=== PATIENT | male | born 1960 | race Caucasian/White ===

== ENCOUNTER 2018-02-16 22:54 | Inpatient (IN) ==
--- NOTE | 2018-02-16 23:48 | Emergency Department Note ---
Disposition Clinical Impression: Hyperglycemia, Ketosis Disposition: Admitted As Inpatient Condition: Fair Referrals: Neeta Fernando CNP [Primary Care Provider] - Forms: ED Satisfaction Letter, Work/School Release Time of Disposition: 01:43 General Adult HPI - General Chief complaint: ED General Medical Stated complaint: Abnormal high glucose Time Seen by Provider: 02/16/18 23:13 Source: patient Mode of arrival: ambulatory Limitations: no limitations Nursing Notes Reviewed: Yes Vital Signs Reviewed: Yes - History of Present Illness HPI Narrative: 57-year-old male with history of hypertension presents for evaluation of elevated blood sugar. Patient had outpatient labs was noted to be hyperglycemic with a sugar in the 500s. Patient denies history of diabetes. Patient denies any recent medications or steroids. Patient states that over the past 2 weeks she has had increased urination and increased thirst. Patient' s also had some blurry vision and dry mouth. Patient denies any abdominal pain or nausea vomiting. Patient denies any chest pain but states he feels short of breath. Patient denies any history of kidney disease. Denies any fevers Pain Scale: 0 - Related Data Allergies Allergy/AdvReac Type Severity Reaction Status Date / Time No Known Allergies Allergy Verified 02/16/18 22:56 All systems ED: reviewed and negative except as stated. Constitutional: Denies: fever Cardiovascular: Denies: chest pain Respiratory: Reports: dyspnea. Denies: cough Gastrointestinal: Denies: abdominal pain, nausea, vomiting Past Medical History - Past Medical History Source: patient Medical history: Reports: arthritis, hyperlipidemia, hypertension Psychiatric history: Reports: no psych history - Social History Smoking Status: Former smoker Smokeless Tobacco Status: No Alcohol use: Reports: rarely Drug use: Reports: none Physical Exam - General Limitations: no limitations General appearance: alert, in no apparent distress - Head Head exam: atraumatic, normocephalic, normal inspection - Eye Eye exam: Present: normal appearance, PERRL, EOMI - ENT ENT exam: normal exam, normal oropharynx - Neck Neck exam: Present: normal inspection - Chest Chest inspection: Present: normal inspection, symmetric chest wall rise - Respiratory Respiratory exam: Present: normal lung sounds bilaterally. Absent: respiratory distress - Cardiovascular Cardiovascular exam: Present: regular rate, normal rhythm. Absent: systolic murmur - Abdominal Exam Abdominal exam: Present: soft, Non-Tender - Extremities Exam Extremities exam: Present: normal inspection. Absent: pedal edema - Expanded Lower Extremity Exam Neurovascular/Tendon exam: Present: normal capillary refill - Neurological Exam Neurological exam: Present: alert, oriented X3, CN II-XII intact - Skin Skin exam: Present: warm, dry, intact, normal color Course - Reevaluation(s) Reevaluation #1: Patient seen and examined. Patient's resting catheter. No needs at this time. Time: 01:30 Reevaluation #2: Patient's blood sugars in the 300s. Time: 02:29 Vital Signs Temperature 98 F 02/16/18 22:56 Pulse Rate 91 02/16/18 22:56 Respiratory Rate 18 02/16/18 22:56 Blood Pressure 114/81 02/16/18 22:56 O2 Sat by Pulse Oximetry 96 02/16/18 22:56 Temperature 98 F 02/16/18 22:56 Pulse Rate 71 02/17/18 04:04 Respiratory Rate 20 02/17/18 04:04 Blood Pressure 124/69 02/17/18 04:04 O2 Sat by Pulse Oximetry 97 02/17/18 04:04 Oxygen Delivery Oxygen Delivery Room Air Medical Decision Making - [facility] Narrative Medical decision making narrative: 57-year-old male persists for evaluation of elevated blood sugars. Patient has a history of formal diagnosis of diabetes. Patient had outpatient labs and had a glucose in the 500s. Patient's having 2 weeks of polyuria polydipsia. Patient's also had some vision changes with blurriness. Patient had basic labs which showed elevated glucose. Patient was given 2 L of fluid as well as insulin. Patient was not acidotic. Patient was having ketosis. Patient does not have a way to check her manage his blood sugar at home. Patient's newly diagnosed diabetic. Patient would benefit from diabetic education and counseling adequate hyperglycemic control prior to discharge. Patient denies any fevers no chest pain source of breath. No abdominal pain. No potential trigger. - Lab Data Lab results reviewed: Yes I reviewed the patient's lab results. Result diagrams: 02/16/18 23:31 02/17/18 03:03 Lab Results 02/16/18 02/16/18 02/16/18 Range/Units 23:31 23:31 23:31 WBC 9.9 (4.3-11.1) K/mcL RBC 4.97 (4.19-5.50) M/mcL Hgb 13.8 (12.9-16.9) g/dL Hct 39.7 (37.5-50.1) % MCV 79.9 L (83.0-100.0) fL MCH 27.8 L (28.0-33.3) pg MCHC 34.8 (31.6-35.5) g/dL RDW 14.8 H (11.5-14.5) % Plt Count 93 L (140-400) K/mcL MPV TNP Immature Gran % 0.3 (0-4) % Seg Neutrophils % 49.5 % Lymphocytes % 40.3 % Monocytes % 6.7 % Eosinophils % 2.5 % Basophils % 0.7 % Neutrophils # 4.9 (1.6-8.9) K/mcL Lymphocytes # 4.0 (0.6-4.6) K/mcL Monocytes # 0.7 (0.0-1.3) K/mcL Eosinophils # 0.3 (0.0-0.6) K/mcL Basophils # 0.1 (0.0-0.2) K/mcL Nucleated RBCs/100 WBC 0.3 H (0) /100 WBC Immature Plt Fraction 23.0 H (1.1-6.1) % VBG pH (7.32-7.42) pH Units VBG pCO2 (41-51) mmHg VBG pO2 (25-50) mmHg VBG HCO3 (21-27) mEq/L Sodium 126 L (136-145) mEq/L Potassium 4.4 (3.5-5.1) mEq/L Chloride 94 L (98-107) mEq/L Carbon Dioxide 20 L (23-29) mEq/L BUN 19 (6-20) mg/dL Creatinine 1.05 (0.70-1.30) mg/dL Est GFR ( Amer) > 60 (> 60) Est GFR (Non-Af Amer) > 60 (> 60) BUN/Creatinine Ratio 18 (6-26) Glucose 708 H* (70-105) mg/dL POC Glucose (70-99) mg/dL Calculated Osmolality 298 (280-300) Calcium 9.9 (8.6-10.3) mg/dL Total Bilirubin 0.9 (0.3-1.0) mg/dL AST 28 (13-39) Units/L ALT 29 (7-52) Units/L Alkaline Phosphatase 80 (34-104) Units/L Troponin I < 0.03 (< 0.04) ng/mL Serum Total Protein 8.1 (6.4-8.9) g/dL Albumin 4.1 (3.5-5.7) g/dL Globulin 4.0 H (2.4-3.5) g/dL Albumin/Globulin Ratio 1.0 L (1.1-2.2) Triglycerides (< 150) mg/dL Cholesterol (< 200) mg/dL LDL Cholesterol, Calc (0-99) mg/dL VLDL Cholesterol, Calc (< 31) mg/dL HDL Cholesterol (40-59) mg/dL Cholesterol/HDL Ratio (0-4.9) Beta-Hydroxybutyric Acd 0.62 H (0.02-0.27) mmol/L TSH (0.340-5.600) mcIU/mL Urine Color (Yellow) Urine Clarity (Clear) Urine pH (5.0-8.0) pH Units Ur Specific [place] (1.010-1.025) Urine Protein (Neg-Trace) mg/dL Urine Glucose (UA) (Normal) mg/dL Urine Ketones (Negative) mg/dL Urine Blood (Negative) Urine Nitrite (Negative) Urine Bilirubin (Negative) Urine Urobilinogen (Normal) mg/dL Ur Leukocyte Esterase (Negative) Ur Culture Indicated? (NO) 02/16/18 02/17/18 02/17/18 Range/Units 23:46 00:22 02:20 WBC (4.3-11.1) K/mcL RBC (4.19-5.50) M/mcL Hgb (12.9-16.9) g/dL Hct (37.5-50.1) % MCV (83.0-100.0) fL MCH (28.0-33.3) pg MCHC (31.6-35.5) g/dL RDW (11.5-14.5) % Plt Count (140-400) K/mcL MPV Immature Gran % (0-4) % Seg Neutrophils % % Lymphocytes % % Monocytes % % Eosinophils % % Basophils % % Neutrophils # (1.6-8.9) K/mcL Lymphocytes # (0.6-4.6) K/mcL Monocytes # (0.0-1.3) K/mcL Eosinophils # (0.0-0.6) K/mcL Basophils # (0.0-0.2) K/mcL Nucleated RBCs/100 WBC (0) /100 WBC Immature Plt Fraction (1.1-6.1) % VBG pH 7.41 (7.32-7.42) pH Units VBG pCO2 38 L (41-51) mmHg VBG pO2 98 H (25-50) mmHg VBG HCO3 24 (21-27) mEq/L Sodium (136-145) mEq/L Potassium (3.5-5.1) mEq/L Chloride (98-107) mEq/L Carbon Dioxide (23-29) mEq/L BUN (6-20) mg/dL Creatinine (0.70-1.30) mg/dL Est GFR ( Amer) (> 60) Est GFR (Non-Af Amer) (> 60) BUN/Creatinine Ratio (6-26) Glucose (70-105) mg/dL POC Glucose 348 H (70-99) mg/dL Calculated Osmolality (280-300) Calcium (8.6-10.3) mg/dL Total Bilirubin (0.3-1.0) mg/dL AST (13-39) Units/L ALT (7-52) Units/L Alkaline Phosphatase (34-104) Units/L Troponin I (< 0.04) ng/mL Serum Total Protein (6.4-8.9) g/dL Albumin (3.5-5.7) g/dL Globulin (2.4-3.5) g/dL Albumin/Globulin Ratio (1.1-2.2) Triglycerides (< 150) mg/dL Cholesterol (< 200) mg/dL LDL Cholesterol, Calc (0-99) mg/dL VLDL Cholesterol, Calc (< 31) mg/dL HDL Cholesterol (40-59) mg/dL Cholesterol/HDL Ratio (0-4.9) Beta-Hydroxybutyric Acd (0.02-0.27) mmol/L TSH (0.340-5.600) mcIU/mL Urine Color Yellow (Yellow) Urine Clarity Clear (Clear) Urine pH 6.0 (5.0-8.0) pH Units Ur Specific [place] > 1.030 H (1.010-1.025) Urine Protein Negative (Neg-Trace) mg/dL Urine Glucose (UA) >=1000 H (Normal) mg/dL Urine Ketones Negative (Negative) mg/dL Urine Blood Negative (Negative) Urine Nitrite Negative (Negative) Urine Bilirubin Negative (Negative) Urine Urobilinogen Normal (Normal) mg/dL Ur Leukocyte Esterase Negative (Negative) Ur Culture Indicated? NO (NO) 02/17/18 02/17/18 Range/Units 03:03 03:03 WBC (4.3-11.1) K/mcL RBC (4.19-5.50) M/mcL Hgb (12.9-16.9) g/dL Hct (37.5-50.1) % MCV (83.0-100.0) fL MCH (28.0-33.3) pg MCHC (31.6-35.5) g/dL RDW (11.5-14.5) % Plt Count (140-400) K/mcL MPV Immature Gran % (0-4) % Seg Neutrophils % % Lymphocytes % % Monocytes % % Eosinophils % % Basophils % % Neutrophils # (1.6-8.9) K/mcL Lymphocytes # (0.6-4.6) K/mcL Monocytes # (0.0-1.3) K/mcL Eosinophils # (0.0-0.6) K/mcL Basophils # (0.0-0.2) K/mcL Nucleated RBCs/100 WBC (0) /100 WBC Immature Plt Fraction (1.1-6.1) % VBG pH (7.32-7.42) pH Units VBG pCO2 (41-51) mmHg VBG pO2 (25-50) mmHg VBG HCO3 (21-27) mEq/L Sodium 134 L (136-145) mEq/L Potassium 4.0 (3.5-5.1) mEq/L Chloride 104 (98-107) mEq/L Carbon Dioxide 23 (23-29) mEq/L BUN 16 (6-20) mg/dL Creatinine 0.91 (0.70-1.30) mg/dL Est GFR ( Amer) > 60 (> 60) Est GFR (Non-Af Amer) > 60 (> 60) BUN/Creatinine Ratio 18 (6-26) Glucose 382 H (70-105) mg/dL POC Glucose (70-99) mg/dL Calculated Osmolality 295 (280-300) Calcium 8.6 (8.6-10.3) mg/dL Total Bilirubin (0.3-1.0) mg/dL AST (13-39) Units/L ALT (7-52) Units/L Alkaline Phosphatase (34-104) Units/L Troponin I (< 0.04) ng/mL Serum Total Protein (6.4-8.9) g/dL Albumin (3.5-5.7) g/dL Globulin (2.4-3.5) g/dL Albumin/Globulin Ratio (1.1-2.2) Triglycerides 209 H (< 150) mg/dL Cholesterol 111 (< 200) mg/dL LDL Cholesterol, Calc 42 (0-99) mg/dL VLDL Cholesterol, Calc 42 H (< 31) mg/dL HDL Cholesterol 27 L (40-59) mg/dL Cholesterol/HDL Ratio 4.1 (0-4.9) Beta-Hydroxybutyric Acd (0.02-0.27) mmol/L TSH 1.964 (0.340-5.600) mcIU/mL Urine Color (Yellow) Urine Clarity (Clear) Urine pH (5.0-8.0) pH Units Ur Specific [place] (1.010-1.025) Urine Protein (Neg-Trace) mg/dL Urine Glucose (UA) (Normal) mg/dL Urine Ketones (Negative) mg/dL Urine Blood (Negative) Urine Nitrite (Negative) Urine Bilirubin (Negative) Urine Urobilinogen (Normal) mg/dL Ur Leukocyte Esterase (Negative) Ur Culture Indicated? (NO) - Radiology Data Radiology results reviewed: Yes I reviewed the patient's radiology results. S.B.AShirley - S.B.A.[place] Situation: Demographics Background: Presenting Complaint Assessment: Vital Signs, Course and respsone to treatment, Patient/Family Expectation Recommendation: Barrier(s) to disposition, Recommendation based on pending studies, treatments, or consults S.B.A.RMiguel Ángel Report Given to: Dr. Nicolás Spivey Repor Time: 01:43 Attestation Statement - Attestation Attestation: I examined this patient and my medical decision-making was reviewed with the Resident Physician. I agree with the documented findings, disposition and treatment plan as described except to the extent set forth below. Findings consistent with hyperglycemia. New-onset diabetic. We will admit for insulin regimen and aggressive hydration.
[2018-02-17 00:21] LABS: Bilirubin,Urine Negative (Negative); Blood,Urine Negative (Negative); Clarity,Urine Clear (Clear); Color,Urine Yellow (Yellow); Glucose,Urine (UA) >=1000 mg/dL (Normal); Ketones,Urine Negative (Negative); Leukocyte Esterase,Urine Negative (Negative); Nitrite,Urine Negative (Negative); Protein,Urine Negative (Neg-Trace); Specific Gravity,Urine > 1.030 (1.010-1.025); Urobilinogen,Urine Normal (Normal)
[2018-02-17] MEDS: 0.9 % Sodium Chloride 1,000 ML IVC SCH ×4 (00:23→11:56)
[2018-02-17 00:25] LABS: VBG HCO3 24 mEq/L (21-27); VBG PCO2 38 mmHg (41-51); VBG PH 7.41 pH Units (7.32-7.42); VBG PO2 98 mmHg (25-50)
[2018-02-17 00:30] LABS: Hematocrit 39.7 % (37.5-50.1); Hemoglobin 13.8 g/dL (12.9-16.9); Immature Granulocytes % 0.3 % (0-4); Lymphocytes % 40.3 %; Mean Corpuscular HGB Conc 34.8 g/dL (31.6-35.5); Mean Corpuscular Hemoglobin 27.8 pg (28.0-33.3); Mean Corpuscular Volume 79.9 fL (83.0-100.0); Red Blood Count 4.97 M/mcL (4.19-5.50); Segmented Neutrophils % 49.5 %
[2018-02-17 00:32] LABS: Basophils # 0.1 K/mcL (0.0-0.2); Basophils % 0.7 %; Eosinophils # 0.3 K/mcL (0.0-0.6); Eosinophils % 2.5 %; Monocytes # 0.7 K/mcL (0.0-1.3); Monocytes % 6.7 %; Neutrophils # 4.9 K/mcL (1.6-8.9); Nucleated Red Blood Cells 0.3 /100 WBC (0); Red Cell Distribution Width 14.8 % (11.5-14.5)
[2018-02-17 00:35] LABS: Platelet Count 93 K/mcL (140-400)
[2018-02-17 00:38] LABS: Troponin I < 0.03 ng/mL (< 0.04)
[2018-02-17 01:05] LABS: Alanine Aminotransferase 29 Units/L (7-52); Albumin 4.1 g/dL (3.5-5.7); Alkaline Phosphatase 80 Units/L (34-104); Aspartate Amino Transferase 28 Units/L (13-39); BUN/Creatinine Ratio 18 (6-26); Bilirubin,Total 0.9 mg/dL (0.3-1.0); Blood Urea Nitrogen 19 mg/dL (6-20); Calcium 9.9 mg/dL (8.6-10.3); Carbon Dioxide 20 mEq/L (23-29); Chloride 94 mEq/L (98-107); Glucose 708 mg/dL (70-105); Osmolality,Calculated 298 (280-300); Potassium 4.4 mEq/L (3.5-5.1); Sodium 126 mEq/L (136-145); Total Protein 8.1 g/dL (6.4-8.9); eGFR For African Americans > 60 (> 60); eGFR For Non-African Americans > 60 (> 60)
[2018-02-17] MEDS ORDERED: Insulin Human Regular 10 UNIT in 0.9 % Sodium Chloride 10 ML IV ONE (01:09)
[2018-02-17] MEDS ORDERED: 0.9 % Sodium Chloride 1,000 ML IVC ONE (01:09)
[2018-02-17] MEDS ORDERED: Ondansetron 4 MG/2 ML VIAL IVP PRN (02:54)
[2018-02-17] MEDS ORDERED: *HR* Promethazine 25 MG/ML VIAL IVP PRN (02:54)
[2018-02-17] MEDS ORDERED: Acetaminophen 325 MG TABLET PO PRN (02:54)
[2018-02-17] MEDS ORDERED: Naloxone 0.4 MG/ML INJ IVP PRN (02:54)
[2018-02-17] MEDS ORDERED: *HR* HYDROcodone/Acet 5/325 mg TABLET PO PRN (02:54)
[2018-02-17] MEDS ORDERED: *HR* Dextrose 50 % in Water (Syg) 50 ML SYRINGE IVP PRN (02:57)
[2018-02-17] MEDS ORDERED: Dextrose Gel 15 GM/37.5 ML TUBE PO PRN ×2 (02:57)
[2018-02-17] MEDS ORDERED: D5% in Water 1,000 ML IVC PRN (02:57)
--- NOTE | 2018-02-17 03:03 | Internal Med History&Physical ---
Date of Encounter: 02/17/18 Time of Encounter: 02:30 Internal Medicine - H&P: HPI Chief complaint: Hyperglycemia Admitted From: Emergency Dept Plans for Post Hospital Care: Home History of present illness: Mr. Currie is a 57 year old male with known HTN and HLD pt who presented to ER with generalized weakness, severe thirsty, dry mouth, loss of appetite, increased urinary frequency and loss of weight from last 2 weeks. He went to PCP today, where he found to have severe hyperglycemia and recommend to go to ER for further eval. Here his blood sugar was 708. He denied any CP / SOB. He denied any N/V/Abd pain. He does c/o visual changes / blurry vision. Past Med Surg Social Fam HX - Past Medical History Medical history: arthritis, hyperlipidemia, hypertension Psychiatric history: no psych history - Past Surgical History Surgical History: no surgical history - Social History Smoking Status: Former smoker Smokeless Tobacco Status: No Alcohol use: rarely Drug use: none - Additional Family History Additional family history: Family hsitory reviewed and non contribuitory to current problem. Denied any diabetes in the family Internal Medicine - H&P: Meds 3 Allergy/AdvReac Type Severity Reaction Status Date / Time No Known Allergies Allergy Verified 02/16/18 22:56 All Systems PM: A 10-system review of systems was performed and is negative for pertinent findings except as documented above in the HPI. Review of systems: All the systems are reviewed everything is benign except the systems and symptoms I mentioned in the history of present illness - Constitutional Vitals: Temp Pulse Resp BP Pulse Ox 98 F 91 18 114/81 96 02/16/18 22:56 02/16/18 22:56 02/16/18 22:56 02/16/18 22:56 02/16/18 22:56 General appearance: Present: cooperative, A&O X 3, no acute distress, answers questions appropriately - Head Head exam: Present: atraumatic, normal inspection - Neck Neck exam general surgery: Present: supple - Respiratory Respiratory exam: Present: decreased breath sounds. Absent: rales, respiratory distress, rhonchi, wheezes - Cardiovascular Cardiovascular exam: Present: RRR, +S1, +S2. Absent: tachycardia - GI/Abdominal GI/Abdominal exam: Present: normal bowel sounds, soft. Absent: rebound, rigid, tenderness - Extremities Exam Extremities exam: Absent: calf tenderness, pedal edema, tenderness - Back Exam Back exam: Absent: CVA tenderness (L), CVA tenderness (R) - Neurological Exam Neurological exam: Present: alert, oriented X3 - Psychiatric Psychiatric exam: Present: normal affect, normal mood - Skin Skin exam: Absent: rash Internal Med - H&P Results - Labs CBC & Chem 7: 02/16/18 23:31 02/16/18 23:31 Labs: Short CBC 02/16/18 Range/Units 23:31 WBC 9.9 (4.3-11.1) K/mcL Hgb 13.8 (12.9-16.9) g/dL Hct 39.7 (37.5-50.1) % Plt Count 93 L (140-400) K/mcL Neutrophils # 4.9 (1.6-8.9) K/mcL BMP 02/16/18 23:31 Sodium 126 L Potassium 4.4 Chloride 94 L Carbon Dioxide 20 L BUN 19 Creatinine 1.05 Glucose 708 H* Calcium 9.9 Cardiac Enzymes 02/16/18 Range/Units 23:31 Troponin I < 0.03 (< 0.04) ng/mL Liver Function 02/16/18 Range/Units 23:31 Total Bilirubin 0.9 (0.3-1.0) mg/dL AST 28 (13-39) Units/L ALT 29 (7-52) Units/L Alkaline Phosphatase 80 (34-104) Units/L Albumin 4.1 (3.5-5.7) g/dL Urine 02/16/18 Range/Units 23:46 Urine Color Yellow (Yellow) Urine Clarity Clear (Clear) Urine pH 6.0 (5.0-8.0) pH Units Ur Specific [place] > 1.030 H (1.010-1.025) Urine Protein Negative (Neg-Trace) mg/dL Urine Glucose (UA) >=1000 H (Normal) mg/dL - ABG Interpretation ABG results: 02/17/18 00:22 VBG pH 7.41 VBG pCO2 38 L VBG pO2 98 H VBG HCO3 24 - Assessment and plan (1) Hyperglycemia Current Visit: Yes Status: Acute Assessment and plan: Place the pt into Med surg for observation Reviewed his labs - BS 708 Anion gap - 12 He is not in DKA He is alert, awake and O x 3 Started him on ISS ACHS will f/u on HbA1C Aggressive IV hydration Counseled and educated him about DM management May need to go home on Insulin Educated the pt about it Will check TSH and FLP in AM (2) New onset type 2 diabetes mellitus Current Visit: Yes Status: Acute (3) HTN (hypertension) Current Visit: Yes Status: Acute Assessment and plan: Stable and well controlled resumed home meds Qualifiers: Hypertension type: essential hypertension Qualified Code(s): I10 - Essential (primary) hypertension - Time Spent With Patient Total time spent is greater than 50% in coordination of care (as documented) at patient's floor/unit and/or counseling patient:
[2018-02-17 03:34] LABS: BUN/Creatinine Ratio 18 (6-26); Blood Urea Nitrogen 16 mg/dL (6-20); Calcium 8.6 mg/dL (8.6-10.3); Carbon Dioxide 23 mEq/L (23-29); Chloride 104 mEq/L (98-107); Chol/HDL Ratio 4.1 (0-4.9); Cholesterol 111 mg/dL (< 200); Glucose 382 mg/dL (70-105); HDL Cholesterol 27 mg/dL (40-59); LDL Cholesterol,Calculated 42 mg/dL (0-99); Osmolality,Calculated 295 (280-300); Sodium 134 mEq/L (136-145); Triglycerides 209 mg/dL (< 150); eGFR For African Americans > 60 (> 60); eGFR For Non-African Americans > 60 (> 60)
[2018-02-17 08:40] LABS: Estimated Average Glucose 303 mg/dl; Hemoglobin A1C 12.2 %
[2018-02-17] MEDS: Lisinopril 20 MG TABLET PO SCH (09:50)
[2018-02-17] MEDS: Insulin LISPRO 300 UNITS/3 ML VIAL SQ SCH ×7 (09:50→20:33)
--- NOTE | 2018-02-17 14:35 | Event Note ---
Date of Encounter: 02/17/18 Time of Encounter: 12:30 Patient seen and examined at the bedside. 57-year-old male with known history of hypertension and hyperlipidemia who presented with new onset of severe hyperglycemia and diabetes most likely type II He has been started on sliding scale insulin but his sugars are still in the 300s. I will start him on 10 units of lispro with meals and at bedtime in addition to the sliding scale insulin. Most likely he will need to transition to a long-acting and short-acting combination preferably with Lantus and Humalog He also benefit with initiation of metformin. I have already instructed him to talk to his primary care physician to get referrals for endocrinology upon discharge. He will benefit from diabetes education which has been started while in-house. The rest of the physical exam and assessment and plan is consistent with H&P
[2018-02-18] MEDS: Lisinopril 20 MG TABLET PO SCH (07:39)
[2018-02-18] MEDS: Insulin LISPRO 300 UNITS/3 ML VIAL SQ SCH ×8 (07:40→21:53)
[2018-02-18] MEDS: Insulin DETEMIR 100 UNIT/ML X5UNITS SQ SCH (08:39)
[2018-02-18 09:14] LABS: Alanine Aminotransferase 31 Units/L (7-52); Albumin 3.4 g/dL (3.5-5.7); Albumin/Globulin Ratio 0.9 (1.1-2.2); Alkaline Phosphatase 66 Units/L (34-104); Aspartate Amino Transferase 37 Units/L (13-39); BUN/Creatinine Ratio 13 (6-26); Bilirubin,Total 0.6 mg/dL (0.3-1.0); Blood Urea Nitrogen 11 mg/dL (6-20); Calcium 8.3 mg/dL (8.6-10.3); Carbon Dioxide 23 mEq/L (23-29); Chloride 101 mEq/L (98-107); Globulin 3.6 g/dL (2.4-3.5); Glucose 446 mg/dL (70-105); Osmolality,Calculated 297 (280-300); Potassium 3.7 mEq/L (3.5-5.1); Sodium 134 mEq/L (136-145); eGFR For African Americans > 60 (> 60); eGFR For Non-African Americans > 60 (> 60)
--- NOTE | 2018-02-18 10:28 | Internal Med Progress Note ---
Date of Encounter: 02/18/18 Time of Encounter: 10:24 - Assessment and plan (1) New onset type 2 diabetes mellitus Current Visit: Yes Status: Acute Assessment and plan: Continue on sliding scale insulin. Added 10 units of lispro with every meal in addition to sliding scale. His blood sugars are still in the 400 range and I will initiate Levemir 30 units every day and titrate as we go along. His A1c is greater than 12 and his at a very high risk of going into DKA. His labs especially the BMP this morning does not suggest an anion gap opening. I will continue to emphasize on education about his ongoing medical condition. The patient seems to have no clue as to what diabetes even means and he will need very aggressive diabetes counseling and education. I have instructed the nurses to teach him how to give himself insulin and add him on reading material for diabetes. He will need to go home on insulin. Exact treatment plan is still TBD (2) Hyperglycemia Current Visit: Yes Status: Acute Assessment and plan: See plan above (3) HTN (hypertension) Current Visit: Yes Status: Acute Assessment and plan: Stable and well controlled resumed home meds and continue to monitor Qualifiers: Hypertension type: essential hypertension Qualified Code(s): I10 - Essential (primary) hypertension - Time Spent With Patient Total time spent is greater than 50% in coordination of care (as documented) at patient's floor/unit and/or counseling patient: 25 - 35 minutes - Subjective Interval history: And states he did not have good rest last night he was woken up multiple times. He denies any new fevers or chills - Constitutional Vitals: Temp Pulse Resp BP Pulse Ox 98.2 F 65 20 133/77 93 02/18/18 07:25 02/18/18 07:25 02/18/18 07:25 02/18/18 07:25 02/18/18 07:25 General appearance: Present: cooperative, A&O X 3, no acute distress, answers questions appropriately Exam: GENERAL: Alert, no distress, cooperative EYES: PERRLA, EOMI EARS: External ears normal, canals clear OROPHARYNX: Lips, mucosa, and tongue normal. Teeth and gums normal. Oropharynx normal. NECK: No jugulovenous distention, No carotid bruits, Carotid pulse normal contour, Supple LUNGS: Lungs clear to auscultation, Good diaphragmatic excursion CARDIAC: Normal S1 and S2; no rubs, murmurs, or gallops ABDOMEN: Abdomen soft, non-tender, BS normal, No masses or organomegaly EXTREMITIES: Extremities normal, no deformities, edema, clubbing or skin discoloration. Good capillary refill., No ulcers NEURO: Gait normal. Reflexes normal and symmetric. Sensation grossly intact, Cranial nerves II-XII intact PULSES: 2+ radial, 2+ carotid Rest of the exam is non contributory Internal Medicine: Result - Labs CBC & Chem 7: 02/16/18 23:31 02/18/18 08:34 Labs: BMP 02/18/18 08:34 Sodium 134 L Potassium 3.7 Chloride 101 Carbon Dioxide 23 BUN 11 Creatinine 0.86 Glucose 446 H Calcium 8.3 L Liver Function 02/18/18 Range/Units 08:34 Total Bilirubin 0.6 (0.3-1.0) mg/dL AST 37 (13-39) Units/L ALT 31 (7-52) Units/L Alkaline Phosphatase 66 (34-104) Units/L Albumin 3.4 L (3.5-5.7) g/dL Consult Discharge Plan - Plan Referrals: Neeta Fernando, [place] [Primary Care Provider] -
[2018-02-19] MEDS: Lisinopril 20 MG TABLET PO SCH (08:54)
[2018-02-19] MEDS: Insulin LISPRO 300 UNITS/3 ML VIAL SQ SCH ×8 (08:54→22:02)
[2018-02-19] MEDS: Insulin DETEMIR 100 UNIT/ML X5UNITS SQ SCH (09:04)
--- NOTE | 2018-02-19 15:07 | Internal Med Progress Note ---
Date of Encounter: 02/19/18 Time of Encounter: 15:07 - Assessment and plan (1) New onset type 2 diabetes mellitus Current Visit: Yes Status: Acute Assessment and plan: routine outpatient lab work showed a glucose of 700; no known diagnosis of diabetes. Hgb A1c 12.2%. Long acting insulin, prandial insulin and SSI initiated this hospitalization. Continue aggressive glycemic control. Patient still requiring significant amount of education regarding blood sugar monitoring , insulin administration, sliding scale. Continue to educate. Will need to be able to monitor blood sugar, administer insulin and understands sliding scale before he can safely be discharged home. Blood sugars elevated on 02/19; increase long-acting. Monitor blood sugars and titrate PRN (2) HTN (hypertension) Current Visit: Yes Status: Acute Assessment and plan: per hx. BP controlled. Continue home BP medication. Monitor BP and titrate PRN Qualifiers: Hypertension type: essential hypertension Qualified Code(s): I10 - Essential (primary) hypertension (3) DVT prophylaxis Current Visit: Yes Status: Acute Assessment and plan: ambulation - Time Spent With Patient Total time spent is greater than 50% in coordination of care (as documented) at patient's floor/unit and/or counseling patient: - Subjective Interval history: Seen and examined at bedside. Patient is new to me, information obtained from chart review and patient report. Patient says he feels well, says he actually got some sleep last night. He is a new diabetic and discussed with him at length regarding importance of tight [facility] control. Patient appears to understand with a diagnosis of diabetes is however he still needs ongoing occasional regarding blood sugar monitoring, insulin administration and sliding scale. - Constitutional Vitals: Temp Pulse Resp BP Pulse Ox 97.6 F 58 15 113/77 95 02/19/18 12:36 02/19/18 12:36 02/19/18 12:36 02/19/18 12:36 02/19/18 12:36 General appearance: Present: cooperative, A&O X 3, no acute distress, answers questions appropriately - Head Head exam: Present: atraumatic, normocephalic - Eye Eye exam: Present: PERRL, conjuntiva pink, sclera anicteric Pupils: Present: PERRL - Neck Neck exam general surgery: Present: supple, trachea midline. Absent: lymphadenopathy - Respiratory Respiratory exam: Present: CTAB. Absent: accessory muscle use, rales, rhonchi, wheezes - Cardiovascular Cardiovascular exam: Present: RRR, +S1, +S2. Absent: diastolic murmur, gallop, rubs, systolic murmur - GI/Abdominal GI/Abdominal exam: Present: normal bowel sounds, soft, no peritoneal signs. Absent: distended, tenderness - Extremities Exam Extremities exam: Present: warm, radial pulses palpable and symmetrical. Absent : calf tenderness, cyanotic, pedal edema - Neurological Exam Neurological exam: Present: CN II-XII intact, oriented X3, no focal deficits. Absent: pronater drift, facial droop, speech deficit - Skin Skin exam: Present: dry, intact Internal Medicine: Result - Labs CBC & Chem 7: 02/16/18 23:31 02/18/18 08:34 Consult Discharge Plan - Plan Instructions: How to Check Your Blood Sugar (DC), Diabetic Foot Care (DC), Diabetic Hypoglycemia (DC), Diabetes Mellitus Type 2 in Adults (DC), Meal Planning with Diabetes Exchanges (DC), Diabetic Hyperglycemia (DC) Referrals: Neeta Fernando CNP [Primary Care Provider] - 02/28/18 1:00 pm
[2018-02-20] MEDS: Lisinopril 20 MG TABLET PO SCH (08:06)
[2018-02-20] MEDS: Insulin LISPRO 300 UNITS/3 ML VIAL SQ SCH ×4 (08:06→12:36)
[2018-02-20] MEDS: Insulin DETEMIR 100 UNIT/ML X5UNITS SQ SCH (09:26)
[2018-02-20 11:19] VITALS: BP 132/89
--- NOTE | 2018-02-20 11:52 | Discharge Summary ---
- NOTES TO OUTPATIENT PROVIDER Notes to Outpatient Provider: new dx diabetes. Needs close follow-up Date of Encounter: 02/20/18 Time of Encounter: 14:00 - Discharge Diagnosis (1) New onset type 2 diabetes mellitus Priority: Primary Status: Acute Comments: routine outpatient lab work showed a glucose of 700; no known diagnosis of diabetes. Hgb A1c 12.2%. Long acting insulin, prandial insulin and SSI initiated this hospitalization and continued at discharge. Patient was educated intensely and at length daily regarding diagnosis and treatment of diabetes. Patient was checking his own blood sugars and administering insulin independently at time of discharge. Discharge home on 40 units Lantus, 10 units Humalog prandial insulin with breakfast, lunch, dinner and Humalog sliding scale AC/HS. Will need close outpatient follow-up. (2) HTN (hypertension) Priority: Secondary Status: Chronic Comments: per hx. BP controlled. Cont home BP medication. Qualifiers: Hypertension type: essential hypertension Qualified Code(s): I10 - Essential (primary) hypertension Hospital course: See assessment and plan for Hospital course Discharge discussed with: patient (Seen and examined at bedside. Patient says he feels better and is requesting to go home today. Says he has an autistic son at home that he has to care for. Patient has been drawling up and administering insulin independently. He has also been monitoring his blood sugar independently.) - Time Spent with Patient Total time spent providing and/or coordinating discharge services: - Discharge Medications Prescriptions: Insulin Glargine,Hum.rec.anlog [Lantus Solostar] 40 unit SQ DAILY #1 insuln.pen Insulin LISPRO [HumaLOG] 10 units SQ QIDAC #1 vial Insulin LISPRO [HumaLOG] 0 units SQ HS #1 vial Insulin LISPRO [HumaLOG] 0 units SQ TIDAC #1 vial Home Medications: Lisinopril [Zestril] 20 mg PO DAILY 02/17/18 [History] Insulin Glargine,Hum.rec.anlog [Lantus Solostar] 40 unit SQ DAILY #1 insuln.pen 02/20/18 [Rx] Insulin LISPRO [HumaLOG] 0 units SQ HS #1 vial 02/20/18 [Rx] Insulin LISPRO [HumaLOG] 0 units SQ TIDAC #1 vial 02/20/18 [Rx] Insulin LISPRO [HumaLOG] 10 units SQ QIDAC #1 vial 02/20/18 [Rx] Allergies/Adverse Reactions: 3 Allergy/AdvReac Type Severity Reaction Status Date / Time No Known Allergies Allergy Verified 02/16/18 22:56 Date of admission: 02/17/18 08:16 Primary care physician: Neeta Fernando, Consults: 02/18/18 09:53 Consult to Diabetes Education [CONS] Stat Comment: Reason for Consult: new diabetes diagnosis. Edouard need education on insulin administration and diet. 02/18/18 11:29 Consult to Nutrition [CONS] Routine Comment: generalized education completed. needs meal plans Consulting Provider: NUTRITION Reason for Dietary Consult: Diet Education Discharging clinician: Jessica Vargas Anticipated date of discharge: 02/20/18 - Constitutional Vitals: Temp Pulse Resp BP Pulse Ox 97.8 F 87 20 132/89 98 02/20/18 11:00 02/20/18 11:00 02/20/18 11:00 02/20/18 11:00 02/20/18 11:00 General appearance: Present: cooperative, A&O X 3, no acute distress, answers questions appropriately - Head Head exam: Present: atraumatic, normocephalic - Eye Eye exam: Present: PERRL, conjuntiva pink, sclera anicteric Pupils: Present: PERRL - Neck Neck exam general surgery: Present: supple, trachea midline. Absent: lymphadenopathy - Respiratory Respiratory exam: Present: CTAB. Absent: accessory muscle use, rales, rhonchi, wheezes - Cardiovascular Cardiovascular exam: Present: RRR, +S1, +S2. Absent: diastolic murmur, gallop, rubs, systolic murmur - GI/Abdominal GI/Abdominal exam: Present: normal bowel sounds, soft, no peritoneal signs. Absent: distended, tenderness - Extremities Exam Extremities exam: Present: warm, radial pulses palpable and symmetrical. Absent : calf tenderness, cyanotic, pedal edema - Neurological Exam Neurological exam: Present: CN II-XII intact, oriented X3, no focal deficits. Absent: pronater drift, facial droop, speech deficit - Skin Skin exam: Present: dry, intact - Patient Status Disposition: Home, Self-Care Condition: Good Overall status at discharge: patient is back to baseline - Discharge Instructions Instructions: How to Check Your Blood Sugar (DC), Diabetic Foot Care (DC), Diabetic Hypoglycemia (DC), Diabetes Mellitus Type 2 in Adults (DC), Giving an Insulin Injection (DC), Meal Planning with Diabetes Exchanges (DC), Diabetic Hyperglycemia (DC) Follow Up With: Neeta Fernando CNP [Primary Care Provider] - 02/28/18 1:00 pm - Diet and Activity Activity: increase activity as tolerated Diet: diabetic diet
== END 2018-02-20 16:35 | disposition home or self-care (01) | DRG 637 ==
LOC: EMEROO 22:54 → 2SOUTHHOLD 22:54 → 3BNU 02-17 11:24
PROVIDERS: ADMIT Internal Medicine; ATTEND Internal Medicine